=== PATIENT | female | born 1955 | race Two or more races ===

== ENCOUNTER 2023-12-03 05:10 | Day surgery (SDC) | payer OTHER ==
[~2023-12-03] VITALS: Ht 166.4 cm; Wt 68.0 kg
[~2023-12-03 05:10] MED LIST: ANASTROZOLE1 MG PO
[2023-12-03] MEDS ORDERED: CEFAZOLIN SODIUM 1,000 MG VIAL ONE ×2 (05:56→11:12)
[2023-12-03] MEDS ORDERED: EPINEPHRINE HCL/PF 1 MG/ML AMPUL ONE ×2 (06:57→07:35)
[2023-12-03] MEDS ORDERED: BUPIVACAINE HCL/MPF 0.5% 30ML VIAL ONE (06:57)
[2023-12-03] MEDS ORDERED: LIDOCAINE HCL 1%/EPINEPHRINE 20ML VIAL IJ ONE (06:58)
[2023-12-03] MEDS ORDERED: METHYLPREDNISOLONE ACETATE 80 MG/ML VIAL ONE (06:58)
[2023-12-03] MEDS ORDERED: CEFAZOLIN SODIUM 1,000 MG VIAL IV ONE ×2 (08:00→08:45)
[2023-12-03] MEDS ORDERED: METHYLPREDNISOLONE ACETATE 40 MG/ML VIAL IJ ONE (08:00)
[2023-12-03] MEDS ORDERED: EPINEPHRINE HCL/PF 1 MG/ML AMPUL IR ONE (08:00)
[2023-12-03] MEDS ORDERED: BUPIVACAINE HCL/PF 0.25% 30ML VIAL InF ONE (08:00)
[2023-12-03] MEDS ORDERED: ISOPROPYL ALCOHOL 30 ML OUNCE TOP ONE (08:00)
[2023-12-03] MEDS ORDERED: DUI500 PO (08:44)
[2023-12-03] MEDS ORDERED: TRAM1TAB98 PO (08:44)
[2023-12-03] MEDS ORDERED: PROMETHAZINE HCL 25 MG/ML AMPUL IM PRN (08:45)
[2023-12-03] MEDS ORDERED: MEPERIDINE HCL/PF 25 MG/ML VIAL IM PRN (08:45)
[2023-12-03] MEDS ORDERED: CEFADROXIL 500 MG CAPSULE PO SCH (09:00)
== END 2023-12-03 14:35 | disposition home or self-care (01) ==
LOC: CIR.AMB 05:10
PROVIDERS: ATTEND Orthopaedic Surgery Sports Medicine
DX: S83.281A Other tear of lateral meniscus, current injury, right knee, initial encounter (principal); S83.241A Other tear of medial meniscus, current injury, right knee, initial encounter; M22.41 Chondromalacia patellae, right knee; M23.51 Chronic instability of knee, right knee; M67.51 Plica syndrome, right knee